=== PATIENT | female | born 1980 | race African-American/Black ===

== ENCOUNTER → 2016-08-02 | Outpatient (CLI) | payer OTHER ==
--- NOTE | ~2016-08-02 | CR61 ---
[facility] A Service of [facility] & [facility] RADIOLOGY TEXT RESULTS PATIENT: DILEEP WHITTAKER LOCATION: [facility] : 78 UNIT #: [id number] AGE: [address]: HILDA GRAMAJO APRN SEX: F ORDER DR: [id number] [facility] [address] [place], [place] [address] [id number] O MR#: [id number] Acc #: [id number] NAME: DILEEP WHITTAKER : 1980 SEX: F STUDY DATE/TIME: 08/02/2016 18:19 UNIT: [facility] ROOM: STUDY DESCRIPTION: CR Cervical Spine Min 5 Views Attending Physician: Anisha Sinclair Ordering Physician: Anisha Sinclair Primary Care Physician: [facility] MEDICAL IMAGING REPORT This report is preliminary unless electronic signature is present EXAM Cervical spine 5 view series. HISTORY Cervical pain. Mid neck pain for 2 months. Both hands are numb and tingling. FINDINGS AP, lateral, oblique and odontoid views of the cervical spine were obtained. Neural foramina are patent. The alignment is normal. The disc spaces are normal. IMPRESSION Normal 5 view cervical spine series. Dictated by... Cleveland Matamoros M.D. THIS IS AN ELECTRONICALLY VERIFIED REPORT Cleveland Matamoros M.D. at 08/03/2016 12:28 PM Juan Diego TD: 08/03/2016 09:28 JOB #: [id number] MEDICAL IMAGING REPORT Page 1 of 1 COPY
== END | disposition home or self-care (01) ==
LOC: CRAD 17:58
DX: M54.2 Cervicalgia (principal)
CPT/HCPCS: 72050